=== PATIENT | female | born 1975 | race American Indian/Alaskan Native ===

== ENCOUNTER 2017-12-01 21:48 | Emergency (ER) | payer SELFPAY ==
[2017-12-01 22:53] VITALS: BP 183/87
[2017-12-01 23:50] LABS: Bilirubin,Urine NEG (Negative); Blood,Urine NEG (Negative); Color,Urine Yellow (Yellow); Hyaline Casts,Urine 1 /LPF; Mucus,Urine 1+ /HPF
[2017-12-02 00:26] LABS: HCG Qualitative,Urine Negative (Negative)
== END 2017-12-02 00:50 | disposition left against medical advice (07) ==
LOC: ED 21:48
DX: M54.9 Dorsalgia, unspecified (principal); Z53.21 Procedure and treatment not carried out due to patient leaving prior to being seen by health care provider
CPT/HCPCS: 81001; 81025; 87086

== ENCOUNTER 2018-05-30 17:21 | Emergency (ER) | payer SELFPAY ==
--- NOTE | 2018-05-30 18:10 | XRay Report ---
FINAL REPORT EXAM: XR CHEST ROUTINE 2V HISTORY: SOB TECHNIQUE: PA and lateral views of the chest Comparison: None FINDINGS: There is no evidence of infiltrate, pneumothorax or pleural fluid collection. The cardiomediastinal silhouette is normal in appearance. The bony structures are unremarkable IMPRESSION: . 1. No evidence of an acute pulmonary process.
[2018-05-30 18:14] LABS: Basophils % (Auto) 0.5 % (0.0-1.8); Eosinophils # (Auto) 0.3 K/mm3 (0.0-0.4); Eosinophils % (Auto) 4.7 % (0.0-4.3); Hematocrit 34.4 % (30.3-42.9); Hemoglobin 11.2 gm/dl (10.1-14.3); Lymphocytes # (Auto) 1.3 K/mm3 (1.2-5.4); Lymphocytes % (Auto) 19.1 % (13.4-35.0); Mean Corpuscular HGB Conc 33 % (30-34); Mean Corpuscular Hemoglobin 29 pg (28-32); Mean Corpuscular Volume 88 fl (79-97); Monocytes # (Auto) 0.5 K/mm3 (0.0-0.8); Monocytes % (Auto) 7.1 % (0.0-7.3); Platelet Count 238 K/mm3 (140-440); Red Blood Count 3.91 M/mm3 (3.65-5.03); Red Cell Distribution Width 14.6 % (13.2-15.2)
[2018-05-30 18:35] LABS: BUN/Creatinine Ratio 12; Blood Urea Nitrogen 11 mg/dL (7-17); Calcium 8.8 mg/dL (8.4-10.2); Hemolysis Index 6
[2018-05-30] MEDS ORDERED: DUONEB *Not for PRN Use IH ONE (21:17)
--- NOTE | 2018-05-30 21:21 | Emergency Department Report ---
ED General Adult HPI - General Chief complaint: Dyspnea/Respdistress Stated complaint: ABDIEL/WHEEZING Time Seen by Provider: 05/30/18 21:13 Source: patient Mode of arrival: Ambulatory Limitations: No Limitations - History of Present Illness Initial comments: Patient is 43 years old female with history of hypertension. Patient presented to the ER complaining of cough, low-grade fever and wheezing for the last 5 days. Patient stated that her son was recently hospitalized for pneumonia. Patient denied any shortness of breath, nausea or vomiting. No chest pain. - Related Data Previous Rx's Medication Instructions Recorded Last Taken Type Acetaminophen/Codeine [Tylenol #3] 1 tab PO Q6H PRN #10 tab 02/18/16 Unknown Rx hydroCHLOROthiazide [HCTZ] 25 mg PO QDAY #31 tablet 02/18/16 Unknown Rx ALBUTEROL Inhaler (OR & NICU) 2 puff IH QID PRN #1 inhalation 05/30/18 Unknown Rx [ProAir HFA Inhaler] Amlodipine Besylate [Norvasc] 5 mg PO DAILY #30 tablet 05/30/18 Unknown Rx Amoxicillin [Amoxicillin TAB] 875 mg PO BID #14 tablet 05/30/18 Unknown Rx amLODIPine [Norvasc] 5 mg PO DAILY #30 tab 05/30/18 Unknown Rx hydroCHLOROthiazide [HCTZ] 25 mg PO QDAY #30 tablet 05/30/18 Unknown Rx Allergies Allergy/AdvReac Type Severity Reaction Status Date / Time No Known Allergies Allergy Verified 12/01/17 22:49 ED Review of Systems ROS: Stated complaint: ABDIEL/WHEEZING Other details as noted in HPI Comment: All other systems reviewed and negative Constitutional: fever. denies: chills ENT: ear pain Respiratory: cough, wheezing. denies: orthopnea, shortness of breath, SOB with exertion, SOB at rest Cardiovascular: denies: chest pain, palpitations, dyspnea on exertion Gastrointestinal: denies: abdominal pain, nausea, vomiting, diarrhea, constipation, hematemesis, melena, hematochezia Genitourinary: denies: urgency Neurological: denies: headache, numbness, paresthesias, confusion, abnormal gait ED Past Medical Hx - Past Medical History Hx Hypertension: Yes Additional medical history: left ventricular hyertrophy - Surgical History Additional Surgical History: c section - Social History Smoking Status: Current Some Day Smoker Substance Use Type: None - Medications Home Medications: Home Medications Medication Instructions Recorded Confirmed Last Taken Type Acetaminophen/Codeine [Tylenol #3] 1 tab PO Q6H PRN #10 tab 02/18/16 Unknown Rx hydroCHLOROthiazide [HCTZ] 25 mg PO QDAY #31 tablet 02/18/16 Unknown Rx ALBUTEROL Inhaler (OR & NICU) 2 puff IH QID PRN #1 inhalation 05/30/18 Unknown Rx [ProAir HFA Inhaler] Amlodipine Besylate [Norvasc] 5 mg PO DAILY #30 tablet 05/30/18 Unknown Rx Amoxicillin [Amoxicillin TAB] 875 mg PO BID #14 tablet 05/30/18 Unknown Rx amLODIPine [Norvasc] 5 mg PO DAILY #30 tab 05/30/18 Unknown Rx hydroCHLOROthiazide [HCTZ] 25 mg PO QDAY #30 tablet 05/30/18 Unknown Rx ED Physical Exam - General Limitations: No Limitations General appearance: alert, in no apparent distress - Head Head exam: Present: atraumatic, normocephalic, normal inspection - Eye Eye exam: Present: normal appearance, PERRL - ENT ENT exam: Present: normal exam, normal orophraynx, mucous membranes moist - Respiratory Respiratory exam: Present: wheezes, rhonchi, prolonged expiratory. Absent: respiratory distress, rales, stridor, accessory muscle use, decreased breath sounds - Cardiovascular Cardiovascular Exam: Present: regular rate, normal rhythm, normal heart sounds - GI/Abdominal GI/Abdominal exam: Present: soft, normal bowel sounds. Absent: distended, tenderness, guarding, rebound, rigid, organomegaly, mass, bruit, pulsatile mass , hernia - Extremities Exam Extremities exam: Present: normal inspection, full ROM, normal capillary refill. Absent: pedal edema, calf tenderness - Back Exam Back exam: Present: normal inspection, full ROM - Neurological Exam Neurological exam: Present: alert, oriented X3, CN II-XII intact, normal gait, reflexes normal - Skin Skin exam: Present: warm, intact, normal color ED Course Vital Signs 05/30/18 05/30/18 05/30/18 17:28 21:26 21:30 Temperature 100.2 F H Pulse Rate 79 76 Pulse Rate [ Anterior Bilateral Throughout] Respiratory 20 14 Rate Respiratory Rate [Anterior Bilateral Throughout] Blood Pressure 184/96 Blood Pressure [Left] O2 Sat by Pulse 96 97 98 Oximetry 05/30/18 05/30/18 05/30/18 21:35 21:46 22:00 Temperature Pulse Rate 68 73 Pulse Rate [ 65 68 Anterior Bilateral Throughout] Respiratory 19 17 Rate Respiratory 18 18 Rate [Anterior Bilateral Throughout] Blood Pressure Blood Pressure [Left] O2 Sat by Pulse 99 96 Oximetry 05/30/18 05/30/18 05/30/18 22:16 22:34 22:49 Temperature Pulse Rate 73 81 Pulse Rate [ Anterior Bilateral Throughout] Respiratory 19 16 16 Rate Respiratory Rate [Anterior Bilateral Throughout] Blood Pressure Blood Pressure 111/76 187/90 [Left] O2 Sat by Pulse 99 96 99 Oximetry ED Medical Decision Making - Lab Data Result diagrams: 05/30/18 18:00 05/30/18 18:00 - Radiology Data Radiology results: report reviewed Chest x-ray was unremarkable for acute findings. Critical care attestation.: If time is entered above; I have spent that time in minutes in the direct care of this critically ill patient, excluding procedure time. ED Disposition Clinical Impression: Acute bronchitis, Malignant hypertension Disposition: DC- TO HOME OR SELFCARE Is pt being admited?: No Condition: Stable Instructions: Acute Bronchitis (ED), Hypertension (ED) Prescriptions: ALBUTEROL Inhaler (OR & NICU) [ProAir HFA Inhaler] 2 puff IH QID PRN #1 inhalation PRN Reason: Shortness Of Breath amLODIPine [Norvasc] 5 mg PO DAILY #30 tab Amlodipine Besylate [Norvasc] 5 mg PO DAILY #30 tablet Amoxicillin [Amoxicillin TAB] 875 mg PO BID #14 tablet hydroCHLOROthiazide [HCTZ] 25 mg PO QDAY #30 tablet Referrals: PRIMARY CARE, [Primary Care Provider] - 3-5 Days
[2018-05-30 22:50] VITALS: BP 187/90
[2018-05-30] MEDS ORDERED: CATAPRES PO ONE (22:56)
[2018-05-30] MEDS ORDERED: NORVASC PO ONE (23:00)
[2018-05-30] MEDS ORDERED: NORVASC ONE (23:03)
== END 2018-05-30 23:16 | disposition home or self-care (01) ==
LOC: ED 17:21
DX: J40 Bronchitis, not specified as acute or chronic (principal); I10 Essential (primary) hypertension; F17.200 Nicotine dependence, unspecified, uncomplicated
CPT/HCPCS: 36415; 71046; 80048; 85025; 94640; 99284